=== PATIENT | male | born 1985 | race Caucasian/White ===

== ENCOUNTER 2023-02-12 09:27 | Outpatient (REF) | payer OTHER, SELFPAY ==
--- NOTE | ~2023-02-12 | XR_ITS ---
EXAMINATION: XR SHOULDER, RIGHT CLINICAL INFORMATION: Pain in unspecified shoulder COMPARISON: None available. TECHNIQUE: AP, Grashey and axillary views of the right shoulder. FINDINGS: The bones are intact. No fracture. Glenohumeral and acromioclavicular alignment is anatomic with normal joint space. No abnormal soft tissue calcifications. XR/XR shoulder RT min 2V IMPRESSION: No significant bony abnormality.
== END 2023-02-12 09:28 | disposition home or self-care (01) ==
LOC: HO.HOSX 09:27
PROVIDERS: Visit Provider Orthopaedic Surgery
DX: M75.111 Incomplete rotator cuff tear or rupture of right shoulder, not specified as traumatic (principal)
CPT/HCPCS: 73030

== ENCOUNTER 2023-02-12 10:08 | Outpatient (AMB) | payer OTHER, SELFPAY ==
--- NOTE | 2023-02-12 10:26 | MHC.OFFVIS ---
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 On 01/08/23 while at work he slipped, landing on the right shoulder. MRI done at [place] 01/22/23. 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 He works as a secretary of police. He fell while restraining a subject, landing on his right arm and says he jammed his right shoulder back. He was seen at [facility] and given Ibuprofen and a sling. He denies any elbow pain at this time, but complains of shoulder pain with daily activity, worse with overhead activity. He says his sling helps his pain, and NSAIDs give some relief. He just started PT this week. He usually stays active with weightlifting at the gym, but he has not been able to do so since his injury. He finds this frustrating and worries this is a permanent restriction. He had an MRI taken at [facility] on 01/22/23 but does not have a copy of this for today. He will work on obtaining the report for the office [facility] Medical History (Updated 02/12/23 @ 10:47 by Leandro Yeh MD) Incomplete rotator cuff tear Social History (Updated 02/12/23 @ 10:32 by Elle Koenig CMA) Current occupational status: employed Current occupation: Ophthalmic Assistant Review of Systems Const All systems reviewed & are unremarkable except as noted in HPI and below Physical Exam Vital Signs: BMI result Body Mass Index 29.0 Const General: no acute distress, alert and awake Orientation/consciousness: patient oriented x3 HEENT Head: Yes normocephalic and Yes atraumatic Eyes EOM: EOMs intact bilaterally Resp Effort & Inspection: normal respiratory effort and able to speak in complete sentences Cardio Jugular venous distension: no JVD Skin General skin exam: turgor normal Rashes: no rashes Neuro General: patient oriented x3 Extrem Other: Right Shoulder: 45/90/L5 painful EC +H/N Psych Appearance: grossly normal Affect: normal affect Attitude: cooperative Results Reviewed Results Reviewed: I personally reviewed relevant radiographs nl radiographs shoulder Assessment & Plan Assessment & Plan (1) Incomplete rotator cuff tear: Code(s): M75.110 - Incomplete rotator cuff tear or rupture of unspecified shoulder, not specified as traumatic Plan This is a 37 year old man with a right shoulder pain, S/P work injury, DOI: 01/08/23. This is a workers comp visit. He complains of pain with daily activity, worse with overhead activity and at night. He has recently started PT and finds some relief from Ibuprofen. I discussed his diagnosis and treatment options. I recommend NSAIDs, PT, and he remain active as tolerated, with no lifting >10lbs. He was given a note for work to return on light duty, sedentary work only and no lifting activities until his next appointment. He will follow up in 6 weeks. Orders: Orders XR shoulder RT min 2V 02/12/23 M25.519 - Pain in unspecified shoulder PT Evaluation and Treatment 02/12/23 M75.110 - Incomplete rotator cuff tear or rupture of unspecified shoulder, not specified as traumatic Coding Level of Care Code New Pt Level 4 (42746) Diagnoses Incomplete rotator cuff tear M75.110
[2023-02-12 10:29] VITALS: BMI 29.0
== END 2023-02-12 10:48 | disposition home or self-care (01) ==
PROVIDERS: Visit Provider Orthopaedic Surgery
DX: M75.111 Incomplete rotator cuff tear or rupture of right shoulder, not specified as traumatic (principal); Z04.2 Encounter for examination and observation following work accident
CPT/HCPCS: 99203

== ENCOUNTER 2023-02-22 13:16 | Outpatient (AMB) | payer OTHER, SELFPAY ==
--- NOTE | 2023-02-22 13:24 | MHC.OFFVIS ---
Intake Intake Visit Reasons: OV - MRI Review Right Shoulder Intake Note: Everardo is a 37 year old male who presents today for an MRI review of the right shoulder. He will need a work note. Patient reports that he is doing wellk he has some increased pain after PT. He has some mild numbness and tingling. Allergies No Known Allergies Allergy (Verified 02/12/23 10:31) HPI OV - MRI Review Right Shoulder HPI Details Everardo is a 37 year old man who presents for an MRI review of his right shoulder, DOI: 01/08/23. 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 He fell while restraining a subject, landing on his right arm and says he jammed his right shoulder back. He was seen at [facility] and given Ibuprofen and a sling. He has been attending PT and says this has been helping him, though he continues to have pain. He reports having a new sensation of numbness and coldness in his right hand. He says this occurs most often when he raises his arm above his hand. He has discontinued his sling. He usually stays active with weightlifting at the gym, but he has not been able to do so since his injury. He finds this frustrating and worries this is a permanent restriction. He had an MRI taken at [place] on 01/22/23, showing a full-thickness RTC tear [facility] Medical History (Updated 02/22/23 @ 13:39 by Anthony España) Incomplete rotator cuff tear Social History (Updated 02/12/23 @ 10:32 by Elle Koenig [facility]) Current occupational status: employed Current occupation: Detective Investigator Review of Systems Const All systems reviewed & are unremarkable except as noted in HPI and below Physical Exam Const General: no acute distress, alert and awake Orientation/consciousness: patient oriented x3 HEENT Head: Yes normocephalic and Yes atraumatic Eyes EOM: EOMs intact bilaterally Resp Effort & Inspection: normal respiratory effort and able to speak in complete sentences Cardio Jugular venous distension: no JVD Skin General skin exam: turgor normal Rashes: no rashes Neuro General: patient oriented x3 Extrem Other: Right Shoulder: + Empty can 20 degrees ER right, compared to 40 degrees ER left Psych Appearance: grossly normal Affect: normal affect Attitude: cooperative Results Reviewed Results Reviewed: I personally reviewed relevant MR images Right full -thickness RTC tear Assessment & Plan Assessment & Plan (1) Right rotator cuff tear: Code(s): M75.101 - Unspecified rotator cuff tear or rupture of right shoulder, not specified as traumatic Plan: This is a 37 year old man with full-thickness right RTC tear, S/P work injury, DOI: 01/08/23. This is a workers comp visit. He continues to have pain with daily activity, worse with overhead activity and at night. He also has new feelings of numbness and coldness in his hand with overhead activities. He has been attending PT, which has been helping him, taking NSAIDs, and has discontinues his sling. I discussed his diagnosis and treatment options. I recommend a right shoulder RTC repair. He should continue with PT & he remain active as tolerated, with no overhead activity or lifting >10lbs, and limiting his ER. I discussed the risks, benefits, and alternatives including, but not limited to, the risk of pain, infection, stiffness, need for further surgery as well as potential medical complications such as blood clots, pulmonary embolism and cardiac complications. I discussed the recovery timeline and process as well as the importance of PT. Everardo is a good candidate for this surgery, and he wishes to proceed with this decision. He will speak with his concerning surgery and will contact the clinic prn. I discussed his RTW timeline following surgery. He was given a note for work to remain out of work at this time while he is deciding. Plan Scribed for Leandro Yeh MD by Anthony España, medical sales associate, on 02/22/23 at 1:40 PM, EST. Coding Level of Care Code Est Pt Level 4 (75156) Diagnoses Right rotator cuff tear M75.101
== END 2023-02-22 13:57 | disposition home or self-care (01) ==
PROVIDERS: Visit Provider Orthopaedic Surgery
DX: S46.011A Strain of muscle(s) and tendon(s) of the rotator cuff of right shoulder, initial encounter (principal); Z04.2 Encounter for examination and observation following work accident
CPT/HCPCS: 99214

== ENCOUNTER → 2023-02-22 13:16 | Outpatient (BNVA) | payer OTHER, SELFPAY | PROVIDERS: Visit Provider Orthopaedic Surgery ==